=== PATIENT | male | born 2000 | race Hispanic/Latino ===

== ENCOUNTER 2024-08-06 19:45 | Emergency (ER) | payer OTHER ==
[2024-08-06 21:04] LABS: Absolute Basophils 0.1 K/uL (0-0.5); Absolute Lymphocytes (CBC) 1.6 K/uL (0.7-4.9); Absolute Monocytes 0.5 K/uL (0.1-1.3); Absolute Neutrophil 4.8 K/uL (1.8-8.0); Basophils % 0.9 % (0-1.3); Eosinophils % 0.3 % (0-4.4); Hematocrit 42.4 % (39.6-49.0); Hemoglobin 14.6 g/dL (13.6-17.9); Lymphocytes % 22.6 % (15.3-44.8); MCH 30.5 pg (27.0-35.0); MCHC 34.5 g/dL (32.0-36.0); MCV 88.3 fL (80-100); Monocytes % 7.7 % (3.3-12.3); Neutrophils % 68.5 % (41.7-73.7); Platelets 214 thou/uL (152-406)
[2024-08-06] MEDS ORDERED: NA CHLORIDE 0.9% 1,000 ML ONE (21:05)
[2024-08-06 21:16] LABS: PT Prothrombin Time 12.9 SECONDS (10-13.0); PTT, Activated Partial Thromb 32.4 SECONDS (27.2-37.4); Protime INR 1.14
--- NOTE | 2024-08-06 21:16 | RAD REPORT ---
EXAM: XR of the abdomen HISTORY: Abdominal pain ABD PAIN COMPARISON: None FINDINGS: XR of the abdomen shows a nonspecific, nonobstructive bowel gas pattern. No radiopaque fore ign body seen. No suspicious calcifications are seen. The bones are unremarkable. Prominent stool is seen throughout the colon. IMPRESSION: Prominent stool in the colon.
--- NOTE | 2024-08-06 21:21 | RAD REPORT ---
EXAMINATION: ONE VIEW CHEST XR CLINICAL INDICATION: COUGH TECHNIQUE: Frontal chest projection is submitted. Examination is limited by patient positioning and t echnique. COMPARISON: No prior exam. FINDINGS: The lungs are well inflated and clear. The heart is normal in size. No displaced fractures identified . IMPRESSION: No acute intrathoracic abnormalities.
[2024-08-06 21:32] LABS: ALT/SGPT 23 U/L (16-61); AST/SGOT 14 U/L (15-37); Albumin 4.1 g/dL (3.4-5.0); Albumin/Globulin Ratio 1.2 (1.1-1.8); Alkaline Phosphatase 100 U/L (45-117); Anion Gap 6.9 mEq/L (5.0-15.0); BUN Blood Urea Nitrogen 15 mg/dL (7-18); Bicarbonate 28 mEq/L (21-32); Bilirubin Direct < 0.2 mg/dL (0-0.2); Bilirubin Total 0.2 mg/dL (0.2-1.0); Globulin 3.4 g/dL (2.3-3.5); Glomerular Filtration Rate 126 ml/min (=/>90); Glucose Level 109 mg/dL (74-106); Magnesium 2.1 mg/dL (1.6-2.4); NT PRO-BNP 30 pg/mL (<125); Potassium 3.9 mEq/L (3.5-5.1); Protein, Total 7.5 g/dL (6.4-8.2); Sodium Level 140 mEq/L (136-145); Troponin High Sensitivity 8.6 pg/mL (<58.9)
[2024-08-06 21:43] LABS: Barbiturates NEGATIVE (NEGATIVE); Benzodiazepines NEGATIVE (NEGATIVE); Cocaine NEGATIVE (NEGATIVE); METHAMPHETAM NEGATIVE (NEGATIVE); Methadone NEGATIVE (NEGATIVE); Opiates NEGATIVE (NEGATIVE); Phencyclidine NEGATIVE (NEGATIVE); THC Cannibis NEGATIVE (NEGATIVE)
--- NOTE | 2024-08-07 00:01 | ER ---
Nurse's Notes [facility] Name: Jose J Hairston Age: 24 yrs Sex: Male : 2000 Arrival Date: 08/06/2024 Time: 19:45 Bed 20 Private MD: Diagnosis: Suicidal ideations;Suicide attempt;Poisoning by other antiepileptic and sedative-hypnotic drugs, intentional self-harm, initial encounter Presentation: 08/06 20:10 Chief complaint: Patient states: took Tegretol 200mg pills. and swallowed 3 razor me1 blades that he says he had dulled on the floor about 17:00 today. Coronavirus screen: Vaccine status: Patient reports receiving the 2nd dose of the covid vaccine. Ebola Screen: No symptoms or risks identified at this time. Initial Sepsis Screen: Does the patient meet any 2 criteria? No. Patient's initial sepsis screen is negative. Does the patient have a suspected source of infection? No. Patient's initial sepsis screen is negative. Risk Assessment: Do you want to hurt yourself or someone else? Patient reports no desire to harm self or others. Onset of symptoms was August 06, 2024 at 17:00. 20:10 Method Of Arrival: [place] [facility] [place] Acuity: DERRICK 3 me1 Triage Assessment: 20:31 General: Appears in no apparent distress. well developed, well nourished, Behavior is me1 calm, cooperative, appropriate for age. Pain: Denies pain. EENT: No signs and/or symptoms were reported regarding the EENT system. Neuro: Level of Consciousness is awake, alert, obeys commands, Oriented to person, place, time, situation, Appropriate for age. Cardiovascular: Patient's skin is warm and dry. Respiratory: Airway is patent Respiratory effort is even, unlabored, Respiratory pattern is regular, symmetrical. GI: Reports he swallowed 3 razor blades that he had dulled on the floor and took Tegretol 200 mg- 12 pills. : No signs and/or symptoms were reported regarding the genitourinary system. Derm: Skin is intact, is healthy with good turgor, Skin is pink, warm \T\ dry. Musculoskeletal: No signs and/or symptoms reported regarding the musculoskeletal system. Historical: - Allergies: 20:31 No Known Allergies; me1 - PMHx: 20:31 Seizure; me1 - PSHx: 20:31 None; me1 - Immunization history:: Adult Immunizations up to date. - Infectious Disease History:: Denies. - Social history:: Smoking status: Patient denies any tobacco usage or history of. Screenin:34 [facility] ED Fall Risk Assessment (Adult) History of falling in the last 3 months, me1 including since admission No falls in past 3 months (0 pts) Confusion or Disorientation No (0 pts) Intoxicated or Sedated No (0 pts) Impaired Gait No (0 pts) Mobility Assist Device Used No (0 pt) Altered Elimination No (0 pt) Score/Fall Risk Level 0 - 2 = Low Risk Maintained a safe environment, Provided non-skid footwear, Hourly rounding (assess needs \T\ fall precautionary measures) done. Abuse screen: Denies threats or abuse. Nutritional screening: No deficits noted. Tuberculosis screening: No symptoms or risk factors identified. Assessment: 20:34 General: See triage assessment. me1 20:44 Reassessment: Called poison control. Case # [id number]. Recommend carbemazepine levels q me1 4 hr until concentration has peaked and is clearly declining. Also recommend toxicology levels of ASA and tylenol. Keep on heart monitor until concentration is declining. Symptomatic and supportive care. 08/07 00:26 Reassessment: Patient appears in no apparent distress at this time. Patient and/or bm8 family updated on plan of care and expected duration. Pain level reassessed. Patient is alert, oriented x 3, equal unlabored respirations, skin warm/dry/pink. Patient denies pain at this time. Patient states feeling better. Patient states symptoms have improved. Vital Signs: 08/06 20:10 BP 142 / 89; Pulse 100; Resp 18; Temp 97.5; Pulse Ox 100% ; Weight 104.33 kg; Height 5 me1 ft. 4 in. ; Pain 0/10; 21:15 BP 117 / 78; Pulse 85; Resp 16; Pulse Ox 100% ; me1 21:56 BP 135 / 90; Pulse 86; Resp 19; Pulse Ox 99% ; me1 23:11 BP 134 / 81; Pulse 87; Resp 18; Temp 97.5; Pulse Ox 100% ; Pain 0/10; bm8 08/07 00:26 BP 135 / 81; Pulse 86; Resp 18; Temp 97.5; Pulse Ox 100% ; Pain 0/10; bm8 08/06 20:10 Body Mass Index 39.48 (104.33 kg, 162.56 cm) me1 08/06 20:10 Pain Scale: Adult me1 23:11 Pain Scale: Adult bm8 08/07 00:26 Pain Scale: Adult bm8 Slick Coma Score: 00:26 Eye Response: spontaneous(4). Motor Response: obeys commands(6). Verbal Response: bm8 oriented(5). Total: 15. ED Course: 08/06 20:00 Patient arrived in ED. kmf 20:04 Leonides Brown MD is Attending Physician. do 20:21 Jessica Whaley, RN is Primary Nurse. me1 20:31 Triage completed. me1 20:31 Arm band placed on Patient placed in an exam room. me1 20:34 Patient has correct armband on for positive identification. Bed in low position. Call me1 light in reach. Side rails up X2. Provided Education on: POC. Verbalized understanding.. Client placed on continuous cardiac and pulse oximetry monitoring. NIBP monitoring applied. Pulse ox on. NIBP on. 20:34 No provider procedures requiring assistance completed. me1 20:54 Basic Metabolic Panel Sent. me1 20:54 CBC with Diff Sent. me1 20:54 LFT's Sent. me1 20:54 Magnesium Sent. me1 20:54 NT PRO-BNP Sent. me1 20:54 PT-INR Sent. me1 20:55 Troponin HS Sent. me1 20:55 Acetaminophen Sent. me1 20:55 ETOH Level Sent. me1 20:55 Ptt, Activated Sent. me1 20:55 Salicylate Sent. me1 20:55 Tegretol Level Sent. me1 21:03 XRAY Chest (1 view) In Process Unspecified. EDMS 21:03 Abdomen 1 View (KUB) XRAY In Process Unspecified. EDMS 22:03 EKG done, by ED staff, reviewed by Leonides Brown MD. me1 08/07 00:26 Diet tray given. PO fluids given. bm8 00:26 IV discontinued, intact, bleeding controlled, No redness/swelling at site. Pressure bm8 dressing applied. Administered Medications: 08/06 21:16 Drug: NS 0.9% IV 1000 ml IV at 1000 ml once; to be given as a bolus over 60 minutes me1 Route: IV; Rate: 1000 ml; Site: right antecubital; 08/07 00:26 Follow up: Response: No adverse reaction; IV Status: Completed infusion bm8 Medication: 08/06 20:34 VIS not applicable for this client. me1 Outcome: 08/07 00:00 Discharge ordered by MD. lei 00:26 Discharged to Law Enforcement bm8 00:26 Condition: stable 00:26 Discharge instructions given to patient, police, Instructed on discharge instructions, follow up and referral plans. no drinking with medication, no driving heavy equipment, medication usage, safety practices, Demonstrated understanding of instructions, follow-up care, medications, 00:29 Patient left the ED. bm8 Signatures: Dispatcher [employer] Leonides Templeton MD MD cha Eddleman, Michelle, HAYDEN RN me1 Naty Preciado [facility] Cem Burnett RN RN bm8
--- NOTE | 2024-08-07 00:01 | EDPHYS ---
Physician Documentation [facility] Name: Jose J Hairston Age: 24 yrs Sex: Male : 2000 Arrival Date: 08/06/2024 Time: 19:45 Bed 20 Private MD: ED Physician Leonides Brown HPI: 08/06 21:24 This 24 yrs old Male presents to ER via Law Enforcement with complaints of do swallowed 2-3 razor blades, took tegretol. 21:24 The patient presents to the emergency department after a known overdose, that was do intentional. Context: Method: the patient has a confirmed or suspected ingestion, razors , tegretol. Associated signs and symptoms: The patient has no apparent associated signs or symptoms. Severity of symptoms: At their worst the symptoms were very mild in the emergency department the symptoms are unchanged. tdc , hx of this. Onset: The symptoms/episode began/occurred at 17:00. The patient has experienced similar episodes in the past, multiple times. Historical: - Allergies: 20:31 No Known Allergies; me1 - PMHx: 20:31 Seizure; me1 - PSHx: 20:31 None; me1 - Immunization history:: Adult Immunizations up to date. - Infectious Disease History:: Denies. - Social history:: Smoking status: Patient denies any tobacco usage or history of. ROS: 21:26 Constitutional: Negative for fever, chills, and weight loss, Eyes: Negative for injury, do pain, redness, and discharge, ENT: Negative for injury, pain, and discharge, Neck: Negative for injury, pain, and swelling, Cardiovascular: Negative for chest pain, palpitations, and edema, Respiratory: Negative for shortness of breath, cough, wheezing, and pleuritic chest pain, Abdomen/GI: Negative for abdominal pain, nausea, vomiting, diarrhea, and constipation, Back: Negative for injury and pain, : Negative for injury, bleeding, discharge, and swelling, MS/Extremity: Negative for injury and deformity, Skin: Negative for injury, rash, and discoloration, Neuro: Negative for headache, weakness, numbness, tingling, and seizure, Allergy/Immunology: Negative for hives, rash, and allergies, Endocrine: Negative for neck swelling, polydipsia, polyuria, polyphagia, and marked weight changes, Hematologic/Lymphatic: Negative for swollen nodes, abnormal bleeding, and unusual bruising, 21:26 Neuro: Negative for altered mental status, 21:26 Psych: Positive for anxiety, depression, suicide gesture, suicidal ideation, Exam: 21:26 Constitutional: This is a well developed, well nourished patient who is awake, alert, do and in no acute distress. Head/Face: Normocephalic, atraumatic. Eyes: Pupils equal round and reactive to light, extra-ocular motions intact. Lids and lashes normal. Conjunctiva and sclera are non-icteric and not injected. Cornea within normal limits. Periorbital areas with no swelling, redness, or edema. ENT: Nares patent. No nasal discharge, no septal abnormalities noted. Tympanic membranes are normal and external auditory canals are clear. Oropharynx with no redness, swelling, or masses, exudates, or evidence of obstruction, uvula midline. Mucous membranes moist. Neck: Trachea midline, no thyromegaly or masses palpated, and no cervical lymphadenopathy. Supple, full range of motion without nuchal rigidity, or vertebral point tenderness. No Meningismus. Chest/axilla: Normal chest wall appearance and motion. Nontender with no deformity. No lesions are appreciated. Cardiovascular: Regular rate and rhythm with a normal S1 and S2. No gallops, murmurs, or rubs. Normal PMI, no JVD. No pulse deficits. Respiratory: Lungs have equal breath sounds bilaterally, clear to auscultation and percussion. No rales, rhonchi or wheezes noted. No increased work of breathing, no retractions or nasal flaring. Abdomen/GI: Soft, non-tender, with normal bowel sounds. No distension or tympany. No guarding or rebound. No evidence of tenderness throughout. Back: No spinal tenderness. No costovertebral tenderness. Full range of motion. Male : Normal genitalia with no discharge or lesions. Skin: Warm, dry with normal turgor. Normal color with no rashes, no lesions, and no evidence of cellulitis. MS/ Extremity: Pulses equal, no cyanosis. Neurovascular intact. Full, normal range of motion., bilateral aka Neuro: Awake and alert, GCS 15, oriented to person, place, time, and situation. Cranial nerves II-XII grossly intact. Motor strength 5/5 in all extremities. Sensory grossly intact. Cerebellar exam normal. Normal gait. Psych: Awake, alert, with orientation to person, place and time. Behavior, mood, and affect are within normal limits. 21:26 ECG was reviewed by the Attending Physician. Vital Signs: 20:10 BP 142 / 89; Pulse 100; Resp 18; Temp 97.5; Pulse Ox 100% ; Weight 104.33 kg; Height 5 me1 ft. 4 in. ; Pain 0/10; 21:15 BP 117 / 78; Pulse 85; Resp 16; Pulse Ox 100% ; me1 21:56 BP 135 / 90; Pulse 86; Resp 19; Pulse Ox 99% ; me1 23:11 BP 134 / 81; Pulse 87; Resp 18; Temp 97.5; Pulse Ox 100% ; Pain 0/10; bm8 08/07 00:26 BP 135 / 81; Pulse 86; Resp 18; Temp 97.5; Pulse Ox 100% ; Pain 0/10; bm8 08/06 20:10 Body Mass Index 39.48 (104.33 kg, 162.56 cm) ms1 08/06 20:10 Pain Scale: Adult me1 23:11 Pain Scale: Adult bm8 08/07 00:26 Pain Scale: Adult bm8 Slick Coma Score: 00:26 Eye Response: spontaneous(4). Motor Response: obeys commands(6). Verbal Response: bm8 oriented(5). Total: 15. MDM: 08/06 20:04 Medical Screening Exam initiated do 21:27 Differential diagnosis: polypharmacy, over medication. Differential Diagnosis altered do mental status, sepsis, flu. Data reviewed: vital signs, nurses notes, EMS record, lab test result(s), EKG, radiologic studies, plain films. Consideration of Admission/Observation Escalation of care including admission/observation considered. I considered the following discharge prescriptions or medication management in the emergency department Medications were administered in the Emergency Department. See MAR. Independent interpretation of the following test(s) in the Emergency Department EKG: See my EKG interpretation above. Test considered but Not performed: CT: no ct head. Historians other than the Patient: Law enforcement: nikko cesar. Care significantly affected by the following chronic conditions: seizures. 08/06 20:07 Order name: Basic Metabolic Panel; Complete Time: 22:06 do 08/06 20:07 Order name: CBC with Diff; Complete Time: 23:47 08/06 20:07 Order name: LFT's; Complete Time: 22:06 08/06 20:07 Order name: Magnesium; Complete Time: 22:06 08/06 20:07 Order name: NT PRO-BNP; Complete Time: 22:06 08/06 20:07 Order name: PT-INR; Complete Time: 22:06 08/06 20:07 Order name: Troponin HS; Complete Time: 22:06 08/06 20:07 Order name: Acetaminophen; Complete Time: 22:06 08/06 20:07 Order name: ETOH Level; Complete Time: 22:06 08/06 20:07 Order name: Ptt, Activated; Complete Time: 22:06 08/06 20:07 Order name: Salicylate; Complete Time: 22:06 08/06 20:07 Order name: Urine Drug Screen; Complete Time: 22:06 08/06 20:07 Order name: Tegretol Level; Complete Time: 22:06 08/06 21:21 Order name: Tegretol Level: 11 pm; Complete Time: 00:00 08/06 20:07 Order name: XRAY Chest (1 view); Complete Time: 22:06 08/06 20:23 Order name: Abdomen 1 View (KUB) XRAY; Complete Time: 22:06 08/06 20:07 Order name: EKG; Complete Time: 20:07 08/06 20:07 Order name: Cardiac monitoring; Complete Time: 22:03 08/06 20:07 Order name: EKG - Nurse/Tech; Complete Time: 22:03 08/06 20:07 Order name: IV Saline Lock; Complete Time: 20:54 08/06 20:07 Order name: Labs collected and sent; Complete Time: 20:54 08/06 20:07 Order name: O2 Per Protocol; Complete Time: 20:38 08/06 20:07 Order name: O2 Sat Monitoring; Complete Time: 20:38 08/06 20:07 Order name: Suicide Screening ([place]); Complete Time: 20:38 08/06 20:07 Order name: Misc. Order: call poison control, follow orders; Complete Time: 20:40 do EC:26 Rate is 91 beats/min. Rhythm is regular. QRS [place] is Normal. NE interval is normal. QRS do interval is normal. QT interval is normal. No Q waves. T waves are Normal. Clinical impression: NSR w/ Non-specific ST/T Changes and No evidence of ischemia. Interpreted by me. Reviewed by me. Administered Medications: 21:16 Drug: NS 0.9% IV 1000 ml IV at 1000 ml once; to be given as a bolus over 60 minutes me1 Route: IV; Rate: 1000 ml; Site: right antecubital; 08/07 00:26 Follow up: Response: No adverse reaction; IV Status: Completed infusion bm8 Disposition Summary: 08/07/24 00:00 Discharge Ordered Notes: Location: Home do Problem: new do Symptoms: have improved do Condition: Stable do Diagnosis - Suicidal ideations do - Suicide attempt do - Poisoning by other antiepileptic and sedative-hypnotic drugs, intentional do self-harm, initial encounter Followup: do - With: Private Physician - When: Upon discharge from the Emergency Department - Reason: Recheck today's complaints, Continuance of care, Re-evaluation by your physician Discharge Instructions: - Discharge Summary Sheet do - Suicidal Feelings: How to Help Yourself do - Helping Someone Who is Suicidal do - Nontoxic Ingestion, Adult do Forms: - Medication Reconciliation Form do - Antibiotic Education do - Prescription Opioid Use do - Patient Portal Instructions do - Leadership Thank You Letter do Signatures: Dispatcher [employer] EDMS Leonides Brown MD MD cha Eddleman, Michelle, RN RN me1 Cem Burnett RN bm8 Corrections: (The following items were deleted from the chart) 08/06 22:32 21:21 CARBAMAZEPINE (TEGRETOL)+C.LAB.BRZ ordered. EDPR EDMS
[2024-08-07 01:26] VITALS: TEMP 97.5
[2024-08-07 01:32] VITALS: O2SAT 100
[2024-08-07 01:33] VITALS: BP 135/81
== END 2024-08-07 00:29 | disposition home or self-care (01) ==
LOC: ER 19:45
DX: T42.6X2A Poisoning by other antiepileptic and sedative-hypnotic drugs, intentional self-harm, initial encounter (principal)
CPT/HCPCS: 36415; 71045; 74018; 80048; 80076; 80143; 80156; 80179; 80307; 82077; 83735; 83880; 84484; 85025; 85610; 85730; 93005; J7030